=== PATIENT | male | born 1950 | race Caucasian/White ===

== ENCOUNTER 2023-03-05 06:53 | Emergency (ER) | payer MEDICARE, BC, SELFPAY ==
[2023-03-05] VITALS (9 sets, daily range): BP systolic 103–173; BP diastolic 60–88; PULSE 44–62; RESP 14–20; TEMP 36.3; O2SAT 91–98; BMI 28.0
--- NOTE | 2023-03-05 07:02 | EKG12_ITS ---
Test Reason : CP Blood Pressure : / mmHG Vent. Rate : 054 BPM Atrial Rate : 054 BPM P-R Int : 196 ms QRS Dur : 154 ms QT Int : 430 ms P-R-T Axes : 074 025 005 degrees QTc Int : 407 ms Sinus bradycardia Right bundle branch block Abnormal ECG Confirmed by LOIS WEISS, MARILYNN ([id number]), commercial production editor RYAN GARCIA ([id number]) on 03/29/2023 2:10:14 PM Referred By: PERRY Confirmed By:LAURA ABREU MD
--- NOTE | 2023-03-05 07:13 | ED.VIS.CHEST ---
HPI History of Present Illness Chief Complaint: Chest Other Informant: patient Onset/Context/Timing Onset: Month(s) Activity at onset: gradual Timing: Continuous and Waxes and wanes Quality: Positive for - (Gnawing) Location: Substernal and - (Epigastric area) Worsened By: Eating Relieved By: - (Tylenol) Associated Symptoms: Positive for Acid Reflux; Negative for Nausea, Vomiting, Diaphoresis, Dyspnea, Cough, Fever, Lightheadedness or Palpitations Narrative Narrative: Patient presents with chest pain that has been waxing and waning over the past month. Patient states he has been seen at [facility] for this. Patient states he had a recent stress test which was negative. Patient states his pain is over the lower substernal and epigastric area. Patient describes it as gnawing. Patient states it has been constant but waxes and wanes. Patient states it is worse whenever he eats. Patient states Tylenol seems to help with it. Patient denies any nausea or vomiting. Patient denies any diaphoresis. Patient denies any shortness of breath or fevers. CVD Risk Factors: Positive for Hypertension; Negative for Diabetes, Hypercholesterolemia, Family History 1' </=55 or Smoking PE Risk Factors: Negative for Recent Travel/Surgery, Recent Immobilization, Prior DVT or PE, Cancer or OCP + Smoking + >/=35 PFSH PFSH Medical History (Updated 03/05/23 @ 10:[address] Herman Pitts, ) Coronary artery disease High cholesterol HTN (hypertension) Myocardial infarction Pancreatitis Home Medications hydrocodone-acetaminophen 5-325mg 5mg-325mg 1 tab PO Q6H PRN PRN Pain 3 days #10 TABLETS 03/05/23 [Rx Last Taken Unknown] metoclopramide HCl 10 mg tablet 10 mg PO 4X/DAY PRN Headache #20 tabs 03/05/23 [Rx Last Taken Unknown] sucralfate 1 gram tablet (Carafate) 1 g PO BID #20 tabs 03/05/23 [Rx Last Taken Unknown] Allergy/AdvReac Type Severity Reaction Status Date / Time No Known Allergies Allergy Verified 03/05/23 06:57 Surgical History (Updated 03/05/23 @ 07:[address] Herman Pitts, ) Hx of cholecystectomy Hx of heart artery stent Hx of left knee surgery Hx of nasal septoplasty Social History Smoking Status: Unknown if ever smoked ROS ROS ED Constitutional Constitutional ED: Reports chills and subjective; Denies fever(s) Eyes Eyes: Denies blurry vision or change in vision ENT ENT ED: Reports rhinorrhea; Denies sore throat Cardiovascular Cardiovascular: Reports as per HPI and chest pain; Denies palpitations Respiratory/Chest Respiratory/Chest: Denies cough or dyspnea Gastrointestinal Gastrointestinal: Denies nausea or vomiting Genitourinary Genitourinary ED: Denies dysuria or hematuria Musculoskeletal Musculoskeletal: Reports back pain; Denies neck pain Integumentary Reports rash; Denies abscess Neurologic Neurologic: Denies headache(s) or weakness Allergic/Immunologic Allergic/Immunologic ED: Denies mouth swelling or urticaria EXAM Physical Exam Const Vital Signs: 03/05/23 06:54 03/05/23 07:51 03/05/23 07:56 Temperature 97.4 F L Temperature Source Temporal Pulse Rate 59 L 58 L 59 L Respiratory Rate 14 Blood Pressure 173/88 H 173/88 H 131/75 H Blood Pressure Mean 116 Pulse Ox 98 Oxygen Delivery Method Room Air 03/05/23 07:58 03/05/23 07:59 03/05/23 08:00 Temperature Temperature Source Pulse Rate 61 62 Respiratory Rate 16 20 H Blood Pressure 131/75 H 110/65 Blood Pressure Mean 93 80 Pulse Ox 91 91 91 Oxygen Delivery Method Room Air Room Air Room Air 03/05/23 08:53 03/05/23 09:01 03/05/23 10:24 Temperature Temperature Source Pulse Rate 49 L 44 L 47 L Respiratory Rate 16 15 Blood Pressure 103/66 107/60 Blood Pressure Mean 78 Pulse Ox 95 97 Oxygen Delivery Method Room Air Positive well nourished and well developed General Appearance ED: well developed and NAD HEENT Reports moist mucous membranes Neck supple and no JVD Resp normal respiratory effort and clear to auscultation bilaterally Cardio regular rate, regular rhythm and no murmurs GI normal to inspection, nondistended, normoactive bowel sounds Palpation: soft and tender epigastric; Negative for guarding or rebound tenderness present Extremity normal to inspection General Extremety ED: Negative for edema or tenderness General Extremity: Negative for edema Neuro oriented x3, CN's II-XII intact bilaterally and no sensory deficits noted Sensorium / Orientation: alert Motor Exam: strength 5/5 throughout Psych mental status grossly normal Skin no rashes or lesions noted Heart Score History: Slightly/Non-Suspicious ECG: Nonspecific Repolarization Age: >/= 65 years Risk Factors: >/= 3 Risk Factors or History of CAD Troponin: </= Normal Limit Score: 5 MDM MDM MDM Narrative Medical decision making narrative: Differential diagnosis includes cardiac dysrhythmia, cardiac ischemia, pancreatitis, gastritis, gastroesophageal reflux disease, pneumonia, pneumothorax, and musculoskeletal pain. Patient has a Wells score of 0. I do not think this is from a pulmonary embolism. EKG will be obtained to assess for cardiac dysrhythmia and cardiac ischemia. Chest x-ray will be obtained to assess for pneumonia and pneumothorax. CBC will be obtained to assess for leukocytosis and anemia. Comprehensive metabolic profile will be obtained to assess for hepatic function, renal function, and electrolyte abnormality. High-sensitivity troponin will be obtained to assess for cardiac ischemia. Lipase will be obtained to assess for pancreatitis. Lab Data Attestation: I reviewed the patient's lab results. Lab results narrative: CBC was reviewed and was essentially within normal limits. Comprehensive metabolic profile was reviewed and was normal. High-sensitivity troponin was reviewed and was normal. Lipase was reviewed and was normal. Labs: Laboratory Results - last 24 hr 03/05/23 07:05 WBC 8.5 RBC 4.59 L Hgb 15.7 Hct 45.0 MCV 98.0 H MCH 34.2 H MCHC 34.9 RDW Std Deviation 44.8 H RDW Coeff of Marika 12.4 Plt Count 252 MPV 10.6 Immature Gran % (Auto) 1.500 H Neut % (Auto) 44.9 L Lymph % (Auto) 36.4 Reynolds % (Auto) 13.4 H Eos % (Auto) 2.6 Baso % (Auto) 1.2 H Absolute Neuts (auto) 3.8 Absolute Lymphs (auto) 3.08 Nucleated RBC % 0 Sodium 140 Potassium 4.1 Chloride 107 Carbon Dioxide 26.0 Anion Gap 7 BUN 13 Creatinine 1.18 Estim Creat Clear Calc 63.94 Est GFR (MDRD) Af Amer 78 Est GFR (MDRD) Non-Af 65 BUN/Creatinine Ratio 11.0 Glucose 123 H Calcium 9.5 Total Bilirubin 0.90 AST 30 ALT 60 Alkaline Phosphatase 94 Troponin I High Sens 9 Total Protein 7.5 Albumin 3.7 Globulin 3.8 Albumin/Globulin Ratio 1.0 Lipase 34 Radiography Chest X-Ray - ED: 1 View, Read by ED Physician, Read by Radiologist and No Acute Disease Diagnostic Testing: Clinical Impression(s) from Imaging Studies Chest X-Ray 03/05/23 07:34 IMPRESSION: Hyperinflation. No acute abnormality is seen. Electronically Signed: Juwan Kaplan MD at 8:42 EDT , Portable 1 view chest x-ray was obtained. On my independent interpretation, lung swartz show hyperinflation. There is normal cardiac silhouette. Bony thorax is normal. There is no acute process noted. Radiologist also interpreted the x-ray and agrees. EKG Initial EKG: Attestation: I personally reviewed and interpreted this EKG as follows: Interpretation: Sinus Bradycardia (54), RBBB and Non-Specific ST Changes Comments: EKG was pain. On my independent interpretation, it shows sinus bradycardia with a rate of 54. [place] interval was normal at 196 ms. QRS interval was prolonged at 154 ms. QTc interval was 407 ms. [place] was normal. There is a right bundle branch block pattern noted. There are no acute ST or T wave changes noted. There are no prior EKGs available for comparison. Prior EKG tracings: not available for review Prior: No Prior Treatment and Re-Evaluation :: Patient was given aspirin and Zofran initially. Patient was given 2 sublingual nitroglycerin. Patient states this did help with his pain. Patient states his pain was starting to come back. Patient was given a dose of Reglan and a GI cocktail. Patient was also given a dose of morphine. Patient was feeling better on reevaluation. Patient was advised of his findings. Patient was advised of the need to continue to follow-up as scheduled for endoscopy. Patient is unsure if he can wait that long. Patient was given a referral to Dr. Houston. Patient was instructed to call his office to see if he could be seen sooner. Patient was given prescription for Carafate and Reglan. Patient was also given a prescription for short course of [place]. Patient was instructed to continue his other medications as previously prescribed. Even though the patient has a HEART score of 5, I feel comfortable discharging the patient since he has had a stress test which was normal recently. Patient understood and was agreeable with the plan. All questions were answered. Discharge Plan Triage Chief Complaint: Chest Other ED Provider: Herman Pitts Dx/Rx/DC Orders Clinical Impression: Gastritis, Gastroesophageal reflux disease Instructions: ED GERD (Adult), ED Gastritis (Adult) Prescriptions: New hydrocodone-acetaminophen [hydrocodone-acetaminophen] 5-325 mg tablet 1 tab PO Q6H PRN PRN (Reason: Pain) 3 Days Qty: 10 0RF metoclopramide HCl [metoclopramide HCl] 10 mg tablet 10 mg PO 4X/DAY PRN (Reason: Headache) Qty: 20 0RF sucralfate [Carafate] 1 gram tablet 1 g PO BID Qty: 20 0RF Primary Care Provider: Ileana Doe Referrals: Ileana Doe MD [Primary Care Provider] - 3-5 Days Ruy Houston DO [Med Staff - Active Staff] - 5-7 Days Disposition Disposition: Home, Self Care
--- NOTE | 2023-03-05 07:34 | RAD_ITS ---
STUDY: X-RAY CHEST REASON FOR EXAM: Male, 72 years old. Chest pain TECHNIQUE: Single AP portable view of the chest. COMPARISON: None. FINDINGS: EKG electrodes are seen. Hyperinflation. No focal infiltrate is seen. There is no demonstrated pleural abnormality. Normal size heart. Normal mediastinum and christopher. Normal visualized pulmonary arteries. Normal visualized aortic arch and descending thoracic aorta. There are diffuse degenerative changes of the visualized thoracic spine. Normal visualized ribs, clavicles, and shoulders. There is no demonstrated abnormality of the visualized soft tissue structures of the upper abdomen. RAD/Chest 1 View (Portable) IMPRESSION: Hyperinflation. No acute abnormality is seen. Electronically Signed: Juwan Kaplan MD at 8:42 EDT ,
[2023-03-05] MEDS: Aspirin 81 MG TAB.CHEW 324 MG PO (07:46)
[2023-03-05 07:47] LABS: Absolute Lymphocyte Count 3.08 X10^3/uL (0.83-4.51); Absolute Neutrophil Count 3.8 X10^3/uL (2.0-7.7); Basophil% 1.2 % (0-1); Eosinophil# 0.22 X10^3/uL; Eosinophils% 2.6 % (0-5); Hemoglobin 15.7 g/dL (13.0-16.5); Lymphocyte # 3.08 X10^3/ul (0.83-4.51); Lymphocyte % 36.4 % (19-41); Mean Corp Hgb Conc 34.9 g/dL (32-36); Mean Corpuscular Hgb 34.2 pg (27.0-32.0); Mean Platelet Vol. 10.6 fl (6.2-12.0); Monocyte# 1.13 X10^3/uL; Monocyte% 13.4 % (0-10); NRBC Flagged by Analyzer 0 % (0-5); Neutrophil # 3.79 X10^3/uL (2.7-7.7); Neutrophil % 44.9 % (47-70); Platelet Count 252 K/mm3 (150-450); RBC Distribution Width CV 12.4 % (11.6-14.6); RBC Distribution Width SD 44.8 fl (35.1-43.9); Red Blood Count 4.59 M/mm3 (4.6-6.2); White Blood Count 8.5 K/mm3 (4.4-11.0)
[2023-03-05] MEDS: Nitroglycerin SL (ED/IMG/CATH) 0.4 MG TABLET SL ×2 (07:51→07:56)
[2023-03-05 08:04] LABS: AST(SGOT) 30 U/L (15-37); Alanine Aminotransfer ALT/SGPT 60 U/L (16-61); Albumin, Serum 3.7 g/dL (3.2-5.0); Alkaline Phosphatase 94 U/L (45-117); Anion Gap 7 (5-15); BUN 13 mg/dL (7-18); Calcium,Total 9.5 mg/dL (8.5-10.1); Chloride 107 mmol/L (98-107); Creatinine, Serum 1.18 mg/dL (0.70-1.30); EST Glomerular Filtration Rate 65 mL/min (>60); Est Glom Filt Rate - Afr Amer 78 mL/min (>60); Estimated Creatinine Clearance 63.94 ml/min; Globulin 3.8 g/dL (2.2-4.2); Glucose 123 mg/dL (74-106); Lipase 34 U/L (13-75); Potassium 4.1 mmol/L (3.5-5.1); Protein, Total 7.5 g/dL (6.4-8.2); Sodium Level 140 mmol/L (136-145); Troponin-I HS 9 pg/mL (3.0-78.0)
[2023-03-05] MEDS: Ondansetron 4 MG/2 ML Vial IV (08:10)
[2023-03-05] MEDS: Mag Hydrox/Al Hydrox/Simeth 30 ML UDC PO (09:08)
[2023-03-05] MEDS: Metoclopramide 10 MG/2 ML Vial IV (09:08)
== END 2023-03-05 10:38 | disposition home or self-care (01) ==
PROVIDERS: Emergency Provider Emergency Medicine; PCP Internal Medicine; Visit Provider Emergency Medicine
DX: K29.70 Gastritis, unspecified, without bleeding (principal); K21.9 Gastro-esophageal reflux disease without esophagitis; I25.10 Atherosclerotic heart disease of native coronary artery without angina pectoris; I25.2 Old myocardial infarction
CPT/HCPCS: 71045; 80053; 83690; 84484; 85025; 93005; 96374; 96375; 99284; A4216; J2405

== ENCOUNTER → 2023-03-22 | Outpatient (CLI) | payer MEDICARE, BC, SELFPAY ==
--- NOTE | 2023-03-22 08:00 | RAD_ITS ---
STUDY: X-RAY - ESOPHAGUS (BARIUM SWALLOW) WITH FLUOROSCOPY REASON FOR EXAM: Male, 72 years old. DYSPHAGIA TECHNIQUE: 15 view(s) of the esophagus were obtained following swallowing of barium. FLUOROSCOPY TIME (if supplied): (38 seconds) minutes/seconds. 10.95 mGy COMPARISON: None. FINDINGS: There is no demonstrated esophageal foreign body. There is no demonstrated stricture or mucosal abnormality. Normal gastroesophageal junction, without a demonstrated hiatal hernia. The patient ingested a 12 mm tablet of barium. The tablet is trapped at the gastroesophageal junction. Normal visualized aortic arch and descending thoracic aorta. Normal visualized pulmonary parenchyma. Normal visualized osseous structures of the thorax. RAD/Esophagus Dual Contrast IMPRESSION: The ingested 12 mm tablet of barium is trapped at the gastroesophageal junction. Electronically Signed: Juwan Kaplan MD at 14:02 EDT ,
== END | disposition home or self-care (01) ==
LOC: RAD 07:48
PROVIDERS: PCP Internal Medicine; Referring Provider Internal Medicine Gastroenterology; Visit Provider Internal Medicine Gastroenterology
DX: R13.10 Dysphagia, unspecified (principal)
CPT/HCPCS: 74221